=== PATIENT | male | born 1960 | race Caucasian/White ===

== ENCOUNTER 2019-03-28 17:58 | Emergency (ER) | payer MEDICAID, OTHER ==
[~2019-03-28] VITALS: Ht 175.3 cm; Wt 81.2 kg
[2019-03-28 18:14] VITALS: BP 141/85
== END 2019-03-28 19:21 | disposition home or self-care (01) ==
LOC: ER 18:00
DX: R04.0 Epistaxis (principal); R20.2 Paresthesia of skin; R51 Headache; I10 Essential (primary) hypertension
CPT/HCPCS: 99281